=== PATIENT | female | born 1990 | race African-American/Black ===

== ENCOUNTER 2017-04-15 19:57 | Emergency (ER) | payer OTHER ==
[~2017-04-15] VITALS: Ht 162.6 cm; Wt 100.0 kg
[2017-04-15] MEDS ORDERED: SODIUM CHLORIDE 0.9% 1,000 ML IV SCH (20:54)
[2017-04-15] MEDS ORDERED: METHYLPREDNISOLONE SOD SUCC 125 MG/2 ML VIAL IV ONE (21:00)
[2017-04-15] MEDS ORDERED: DEXAMETHASONE 10MG/ML 1ML VIAL IV ONE (21:00)
[2017-04-15] MEDS ORDERED: DIPHENHYDRAMINE 25MG CAPSULE PO ONE (21:00)
[2017-04-15] MEDS ORDERED: FAMOTIDINE 20MG/2ML VIAL IV ONE (21:00)
[2017-04-15 21:50] VITALS: BP 116/68
== END 2017-04-15 22:18 | disposition home or self-care (01) ==
LOC: ER 21:46
DX: T78.40XA Allergy, unspecified, initial encounter (principal); X58.XXXA Exposure to other specified factors, initial encounter; Z91.013 Allergy to seafood
CPT/HCPCS: 96361; 96374; 96375; 99284; J1100; J2930; J3490; J7030; Z7610; Q0163

== ENCOUNTER 2019-04-28 18:07 | Emergency (ER) | payer OTHER ==
[~2019-04-28] VITALS: Ht 162.6 cm; Wt 97.0 kg
[2019-04-28] MEDS ORDERED: SODIUM CHLORIDE 0.9% 1,000 ML IV SCH (18:51)
[2019-04-28] MEDS ORDERED: DIPHENHYDRAMINE 50MG/ML VIAL IV ONE (19:00)
[2019-04-28] MEDS ORDERED: METHYLPREDNISOLONE SOD SUCC 125 MG/2 ML VIAL IV ONE (19:00)
[2019-04-28] MEDS ORDERED: FAMOTIDINE 20MG/2ML VIAL IV ONE (19:00)
[2019-04-28] MEDS ORDERED: ALBUTEROL (0.5%) 2.5MG/0.5ML NEB HHN ONE (19:00)
[2019-04-28 20:51] VITALS: BP 143/90
== END 2019-04-28 20:53 | disposition home or self-care (01) ==
LOC: ER 18:07
DX: T78.1XXA Other adverse food reactions, not elsewhere classified, initial encounter (principal); Z98.890 Other specified postprocedural states; Z91.013 Allergy to seafood; X58.XXXA Exposure to other specified factors, initial encounter
CPT/HCPCS: 94640; 96374; 96375; 99283; J1200; J2930; J3490; J7611